=== PATIENT | female | born 1980 ===

== ENCOUNTER 2023-10-19 08:00 | Outpatient (RCR) | payer OTHER, SELFPAY ==
[2023-10-05 11:40] VITALS: BMI 50.8
--- NOTE | 2023-10-05 14:24 | PC.ADMIT ---
Patient is a 43 year old female who was referred to [facility] by [facility] where she was admitted from 09/17/23-09/26/23 d/t increased depression and anxiety. Reportedly patient was having passive SI having thoughts of going to sleep and not waking up, no plan or intent to kill herself. Patient has a history of stopping medications when she is feeling better. Patient is taking a leave of absence from work. 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 Patient reports having some work stresses. 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 Patient currently is alert and oriented x4. Calm and cooperative. Presented with anxious mood and affect. She was tapping her feet during the assessment, stating she is very anxious. Reports poor sleep d/t anxiety. She denied SI, no HI. I gave her a copy of her safety plan if needed. Stated she is doing this program as she wants to feel better and also her family is encouraging her to do this program. Reports her is getting frustrated with her. Medications reconciled with patient, paperwork from [facility], and patient's pharmacy. She reports medication changes stating she is taking Wellbutrin 300 mg daily and not 450 mg daily, She is taking Fluoxetine 40 mg daily and not 60 mg daily, She takes Klonopin daily as needed, Takes Cyclobenzaprine prn, does not take Lisinopril or Chlorthalidone. Will review with Dr Olson.
--- NOTE | 2023-10-08 15:57 | HO.PHP ---
Client's case was opened and reviewed in team.
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
--- NOTE | 2023-10-09 13:25 | HO.PHP ---
[facility] staff member met with Jalyn after community meeting due to her crying and appearing distressed. Jalyn reported that she is feeling overwhelmed with the amount of people in the program and is feeling as though she cannot do this. Jalyn expressed that everyone is telling her to do the program because she is receiving structure and it is getting her out of the house. Jalyn continued to voice the individuals who want her attending, which are her daughter, spouse, doctor, and therapist. PHP staff member reassured Jalyn that sometimes group settings may be too challenging for certain people and we understand that if this is not a good fit. PHP staff member disclosed that if this is not a good fit and she would like to continue with her OP providers in a one on one setting where it doesn't create her anxiety to increase she would need to let us know. Jalyn voiced that she recently took her medication and is going to attempt to attend groups. Jalyn was able to participate and return to group one.
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
--- NOTE | 2023-10-13 14:46 | HO.PHP ---
[facility] staff member followed up with Jalyn due to the comment she made in the third group about wanting to harm someone. Jalyn expressed that she is not going to harm anyone, she has no plan or intent. Jalyn disclosed that she is having a challenging time with one of the group members because it is a trigger for her due to this individual reminding her of her mother. [facility] staff member suggested that she further explore this with her OP therapist to receive additional insight around why she is responding in the manner she is. Jalyn disclosed she does not need to further explore. [facility] staff member explored if she feels she needs anger management since this is bringing up negative emotions for her. Jalyn disclosed that she does not need anger managment because she doesn't feel this is making her angry, just triggered. [facility] staff member was receptive. [facility] staff member encouraged Jalyn to take breaks if she is struggling and if she needs further support to ask a staff member. Jalyn was receptive and clarified she is not going to harm anyone.
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
--- NOTE | 2023-10-20 09:57 | HO.PHP ---
PHP admin, Gabby, received a phone call from Jalyn stating she won't be in attendance to program today due to her daughter not being able to bring her to program for another three hours. Gabby assessed for any safety concerns. Jalyn reported no concerns around SI, plan or intent and noted she will be in the program tomorrow.
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
== END 2023-10-19 23:59 | disposition home or self-care (01) ==
LOC: HO.PHPA 08:00
PROVIDERS: Visit Provider Psychiatry & Neurology Psychiatry
DX: F40.01 Agoraphobia with panic disorder (principal); F43.10 Post-traumatic stress disorder, unspecified; F39 Unspecified mood [affective] disorder; F41.8 Other specified anxiety disorders; R48.0 Dyslexia and alexia; Z79.899 Other long term (current) drug therapy
CPT/HCPCS: 90791; 90853

== ENCOUNTER → 2024-01-26 11:00 | Outpatient (BNV) | payer OTHER, SELFPAY | PROVIDERS: Visit Provider Psychiatry & Neurology Psychiatry | DX: F40.01 Agoraphobia with panic disorder (principal); F39 Unspecified mood [affective] disorder; F43.10 Post-traumatic stress disorder, unspecified; F41.8 Other specified anxiety disorders; R48.0 Dyslexia and alexia | CPT/HCPCS: 99213; 99214; 99233 ==

== ENCOUNTER → 2024-02-03 14:08 | Outpatient (REF) | payer OTHER, SELFPAY ==
--- NOTE | 2024-02-03 14:14 | ECG_ITS ---
Test Reason : qtc check Blood Pressure : / mmHG Vent. Rate : 095 BPM Atrial Rate : 095 BPM P-R Int : 130 ms QRS Dur : 090 ms QT Int : 366 ms P-R-T Axes : 063 037 049 degrees QTc Int : 459 ms Normal sinus rhythm Normal ECG No previous ECGs available Referred By: Dominga Olson Electronically Signed By:CASPER CASANOVA MD
== END ==
LOC: HO.CARD 14:08
PROVIDERS: PCP Nurse Practitioner Family; Visit Provider Psychiatry & Neurology Psychiatry
DX: F33.2 Major depressive disorder, recurrent severe without psychotic features (principal); F43.10 Post-traumatic stress disorder, unspecified
CPT/HCPCS: 93005

== ENCOUNTER → 2024-02-03 14:14 | Outpatient (BNV) | payer OTHER, SELFPAY | PROVIDERS: PCP Nurse Practitioner Family; Visit Provider Internal Medicine Cardiovascular Disease | DX: I45.81 Long QT syndrome (principal) | CPT/HCPCS: 93010 ==

== ENCOUNTER 2024-02-09 10:45 | Outpatient (RCR) | payer OTHER, SELFPAY ==
[2024-01-26 11:51] VITALS: BP 111/90; PULSE 85; TEMP 36.4; BMI 48.5
--- NOTE | 2024-01-26 12:52 | PC.ADMIT ---
Patient is a 43 year old female who was referred to [facility] by [facility] where patient was admitted from 12/30-01/07/24 d/t increased depression and anxiety. She has been on a medical leave from work since 09/17/23 d/t symptoms. Patient reports symptoms of anxiety include restlessness, tremulousness, chest tightness, blurred vision. Patient denied any substance use including alcohol or marijuana. Feels better since respite however still struggling with anxiety, OCD sxs and depression. She reports her is supportive. Patient stated, sometimes I think he gets tired of it regarding her mental health issues. Reports financial issues stating, Bills are piling up and money is getting short. Patient is alert and oriented x4. Calm and cooperative. Presented with depressed mood and anxious affect. Patient reports she is too anxious to go anywhere including the grocery store and on her deck at home. Stated struggles with OCD sxs checking the stove and doors to her house several times which interferes with sleep. Reports passive SI stating, Thoughts to go to bed and not wake up . Denied any plan or intent to kill herself. She was given a copy of her safety plan if needed. Medications reconciled with patient and patient's pharmacy. She reports some changes made at [facility] including decreased dose of Prozac from 60 mg to 40 mg daily, d/c Ziprasidone and is on Vraylar 3 mg, patient reports she stopped Topiramate, and Wellburtrin was decreased to 150 mg daily from 450 mg daily. I spoke to Eduard from [facility] and requested d/c summary including discharge medication list.
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
--- NOTE | 2024-01-28 08:28 | PC.NURSE ---
Addendum entered by Courtney Perez RN 01/28/24 15:12: Dr Olson is aware. Original Note: Patient stated she is not going to be coming to the program today as she started new medication last night taking Gabapentin and Clonazepam and woke up feeling too tired to drive. She stated she went to bed at 11pm and woke up at 6am to get ready for the program. She denied any other symptoms, no dizziness, no lightheadedness. Will review with Dr Olson.
--- NOTE | 2024-01-28 16:37 | HO.PHP ---
Client's case has been opened and reviewed in team.
--- NOTE | 2024-02-01 14:10 | HO.PHP ---
Staff spoke with Jalyn after concerning comments made throughout the day that she enjoys hurting herself. This physician underwriter asked her how she was hurting herself, and she stated with hot coffee she would burn her tongue with it even knowing that its hot. She stated that she is having a lot of conflict at home with her significant other and daughter because she enacts this behavior, but she get pleasure from the pain. She said otherwise she is safe.
--- NOTE | 2024-02-02 09:25 | HO.PHP ---
[facility] staff member contacted Jalyn due to her not showing up for community meeting. Jalyn informed the [facility] staff member that she woke up late and then her daughter got home late. Jalyn stated she was going to try to leave soon but unfortunately was unable to make it for the cut off time. [facility] staff member assessed for any safety concerns, in which she reported no concerns around SI, plan or intent and stated she will be in attendance to program tomorrow. [facility] staff member was receptive.
--- NOTE | 2024-02-05 10:10 | P.PNPSP_ITS ---
Subjective Subjective Date of Service: 02/05/24 Reason For Visit: MISAEL,PTSD,depression Interim History: Patient reports not doing well. Reports struggling with mood swings, which is causing problems at home with family. They think I'm crazy . She says she is screaming at people one moment and then suddenly being nice and agreeable, swings generally between neutral mood and angry, but also says she is quick to cry when getting emotional regardless or whether she is happy, sad or angry. Says her sisiter in law complains she starts talking fast and gets to yelling to quickly. I get frustrated with everybody She is easily triggered by particular individuals, but to some degree everyone gets on her last nerve. She says she still would like to go back on the ziprasidone and in fact went and impulsively stopped the Vraylar that was doing nothing for me. I don't want it . She says she does not know why the respite provider changed it. She says her psych provider Sarah thought she looked better on the ziprasidone, but also just went along with the change and tried bumping the dose of Vraylar up from 1.5 mg to 3 mg. She says she has been off the Vraylar for some amount of days, is not sure how many exactly, but says she is doing okay, no change overall... Says maybe even better off it . But still presents as anxious and labile by all accounts. Transient passive SI, but says she does not have any serious thoughts. She reports that sleep has been good with the gabapentin and plans to keep taking that. She has a lot of cognitive and somatic energy during the day especially out in public. Brittaney swings are at an 8 or 9 out of 10 in severity. Anger is at a 5 or 6 out of 10 in severity. Anxiety persists at a 7 out of 10 in severity. Medication Compliance: Yes Side effects from medications: No Attending Groups: Yes Review of Systems Acute medical concerns: No Mental Status Exam Mental Status Exam Narrative: Alert, oriented, in no acute distress. Tense, tremulous without tremor, tics or abnormal movements. Eye contact intermittent. Mood scared, anxious, affect uptight, panicky highly anxious, teary eyes without notable lability. Speech soft, mild paucity/delayed response due to baseline language processing (bilingual) otherwise normal. Thought process linear, coherent. Thought content related to stressors, +helplessness, transient hopelessness without SI, intention, urge or plan. Denies aggressive ideation or HI. No paranoia or delusional content elicited. No evidence of psychosis. Insight and judgment - fair but adequate Diagnostics Vital Signs (24Hr): BMI result Body Mass Index 48.5 Assessment & Plan Assessment & Plan (1) Panic disorder with agoraphobia, moderate agoraphobic avoidance and moderate panic attacks: Status: Acute Code(s): F40.01 - Agoraphobia with panic disorder (2) Mood disorder: Status: Acute Code(s): F39 - Unspecified mood [affective] disorder (3) PTSD (post-traumatic stress disorder): Status: Acute Code(s): F43.10 - Post-traumatic stress disorder, unspecified (4) Other specified anxiety disorders: Status: Acute Code(s): F41.8 - Other specified anxiety disorders (5) Dyslexia: Status: Acute Code(s): R48.0 - Dyslexia and alexia Plan cont fluoxetine 40 mg qam (interactions with WB, may decrease) cont Wellbutrin XL 150 mg qAM (helps shorten qtc) patient stopped Vraylar start oxcarbazapine 300 mg qhs (will increase to 450 mg at night Thursday - and may consider BID dosing if not too tiring) only take gabapentin PRN sleep (may discont if sleeping well on oxc) restart ziprasidone at 20 mg BID prn agitation (AM and afternoon) until oxcarb is therapeutic increase guanfacine ER to 2 mg qam (vs switching to propranolol) cont clonazepam 1 mg BID cont hydroxyzine pamoate 50 mg TID prn continue other regular medications: HCTZ 25 mg qd, lisinopril 10 mg, cyclobenzaprine 10 mg, celecoxib 200 mg BID, montelukast 10 mg, loratadine 10 mg, Advair inhaler BID, albuterol inhaler q hr PRN? Routine lab work ordered EKG results reviewed - HR 95, normal EKG, with QTc 459 ms (on vraylar) UDS as indicated Continue to monitor as per protocol Certification I certify that partial hospital treatment is medically necessary due to the symptoms and problems resulting from the patient's mental illness and the fa ilure to treat the patient at the partial hospital level of care would likely result in the patient requiring inpatient psychiatric care which could not be prevented at a less intensive level of care. Total time managing care of this patient today ____ minutes. Discharge Plan Discharge Attending provider: Dominga Olson Additional Instructions: Jalyn has an OP therapist Rajwinder Sewell through [facility], in which her next scheduled appointment will be on February 12, 2024 at 9:15 AM in person. Jalyn has a med provider, Sarah Osei, in which her next scheduled appointment is on February 08, 2024 at 5 PM. Medications: New guanfacine 1 mg tablet extended release 24 hr 1 - 2 mg PO DAILY Qty: 20 0RF gabapentin 300 mg capsule 300 mg PO BEDTIME Qty: 20 0RF ziprasidone HCl 20 mg capsule 20 mg PO BID PRN (Reason: agitation) Qty: 30 0RF Rx Instructions: give with food (meal/snack) oxcarbazepine 300 mg tablet 300 mg PO BID Qty: 30 0RF Continued fluoxetine 40 mg capsule 40 mg PO QAM hydroxyzine pamoate 50 mg capsule 50 mg PO TID bupropion HCl 150 mg tablet extended release 24 hr 150 mg PO QAM Qty: 20 0RF Discontinued ziprasidone HCl 40 mg capsule 40 mg PO BID Qty: 30 0RF Rx Instructions: give with food (meal/snack) Vraylar 3 mg Capsule 3 mg PO DAILY No Action celecoxib 200 mg capsule 200 mg PO BID cyclobenzaprine 10 mg tablet 10 mg PO TID PRN (Reason: muscle spasms) Rx Instructions: Patient takes PRN fluticasone propion-salmeterol [Advair Diskus] 250-50 mcg/dose blister with device 1 ea INHALATION BID montelukast 10 mg tablet 10 mg PO QPM albuterol sulfate [Ventolin HFA] 90 mcg/actuation Hfa Aerosol Inhaler 2 puff INHALATION Q4H PRN (Reason: sob) ferrous sulfate [FeroSul] 325 mg (65 mg iron) tablet See Rx Instructions .ROUTE .COMPLEX Rx Instructions: Take on Mondays, Thursday's, and Thursday's. loratadine 10 mg tablet 10 mg PO DAILY Rx Instructions: Last filled 10/20/22 for 90 day supply. clonazepam 1 mg tablet 1 mg PO DAILY PRN (Reason: Anxiety) 14 Days Qty: 14 0RF Patient Comments: New Script from Dr. Olson. metformin 500 mg Tablet 500 mg PO BID Rx Instructions: Patient reports she is supposed to be on this however does not take. valacyclovir 1 gram tablet 1,000 mg PO DAILY PRN (Reason: outbreaks) chlorthalidone 25 mg Tablet 25 mg PO DAILY pantoprazole 40 mg Tablet,Delayed Release (Dr/Ec) 40 mg PO DAILY lisinopril 10 mg Tablet 10 mg PO DAILY fluticasone propionate 50 mcg/actuation spray,suspension 1 spray intranasal BID clonazepam 0.5 mg Tablet 1 mg PO BID PRN (Reason: Anxiety) Rx Instructions: Take 2 tabs twice a day as needed for anxiety. Stand Alone Forms: Patient Portal Discharge page Print Language: Arabic
--- NOTE | 2024-02-08 10:06 | HO.PHP ---
PHP admin, Gabby, informed the PHP team that Jalyn will not be in attendance to program today due to being sick. There were no safety concerns that were reported.
--- NOTE | 2024-02-09 12:08 | P.PNPSP_ITS ---
Subjective Subjective Date of Service: 02/09/24 Reason For Visit: MISAEL,PTSD,depression Interim History: Patient seen for follow-up, anticipating discharge at the end of program today.? I'm so happy. My daughter gave me more responsibilities with the baby (her granddaughter) . SHe reports that her daughter has seen improvement in her in the past week. I am feeling good, I am have been taking 1 1/2 tablets of the Trileptal (twice a day)..it must be good . SHe denies any adverse effects. She notices feeling less irritable and family says she has been less erretic and adds that she has not been engaging in argulents with her son in law. Sleep is pretty good . She contineus to utilize ziprasidone 20 mg every morning because she feels it helps. SHe agrees to just take it if needed. The Trileptal should be stabilizing her mood and she may not necessarily need to ziprasidone every d ay. Reports no acute issues or concerns. Medication compliant, medications well-tolerated. Denies any adverse effects.? Mood is stable.? Denies any hopelessness or SI. Denies thoughts of harming self or others at this time. Denies any aggressive ideation or HI. Denies any paranoia or AH or VH. Sleep, appetite, energy stable. Mental Status Exam Mental Status Exam Narrative: Alert, oriented, in no acute distress. Cooperative, appears anxious tremulous but calmer. Mood stable, affect appropriate, bright, no tearfulness or lability. Speech normal. Thought process linear, coherent, more goal-directed. Thought content related to stressors, future-oriented, denies any helplessness, hopelessness or SI.? No aggressive ideation or HI. No paranoia or delusional content elicited. No evidence of psychosis. Insight and judgment fair-good. Diagnostics Vital Signs (24Hr): BMI result Body Mass Index 48.5 Assessment & Plan Assessment & Plan (1) Panic disorder with agoraphobia, moderate agoraphobic avoidance and moderate panic attacks: Status: Acute Code(s): F40.01 - Agoraphobia with panic disorder (2) Mood disorder: Status: Acute Code(s): F39 - Unspecified mood [affective] disorder (3) PTSD (post-traumatic stress disorder): Status: Acute Code(s): F43.10 - Post-traumatic stress disorder, unspecified (4) Other specified anxiety disorders: Status: Acute Code(s): F41.8 - Other specified anxiety disorders (5) Dyslexia: Status: Acute Code(s): R48.0 - Dyslexia and alexia Plan Discharge from [facility] cont fluoxetine 40 mg qam (interactions with WB, may decrease) cont Wellbutrin XL 150 mg qAM (helps shorten qtc) continue oxcarbazapine 450 mg BID cotninue gabapentin 300 mg qhs PRN sleep continue ziprasidone 20 mg daily in AM prn agitation continue guanfacine ER 1-2 mg BID cont clonazepam 1 mg BID cont hydroxyzine pamoate 50 mg TID prn continue other regular medications: HCTZ 25 mg qd, lisinopril 10 mg, cyclobenzaprine 10 mg, celecoxib 200 mg BID, montelukast 10 mg, loratadine 10 mg, Advair inhaler BID, albuterol inhaler q hr PRN? Lab work reviewed Refills sent to pharmacy Will defer further medication management to outpatient provider *Safety plan reviewed *Discharge diagnoses, treatment course, discharge plan have been reviewed with patient (including medication regime, medication management, potential side effects) as well as treatment rationale were also revisited *Discharge paperwork signed and given to patient, copy sent for scanning to chart Certification I certify that partial hospital treatment is medically necessary due to the symptoms and problems resulting from the patient's mental illness and the failure to treat the patient at the partial hospital level of care would likely result in the patient requiring inpatient psychiatric care which could not be prevented at a less intensive level of care. Total time managing care of this patient today ____ minutes. Discharge Plan Discharge Attending provider: Dominga Olson Additional Instructions: Jalyn has an OP therapist Rajwinder Sewell through [facility], in which her next scheduled appointment will be on February 12, 2024 at 9:15 AM in person. Jayln has a med provider, Sarah Osei, in which her next scheduled appointment is on February 08, 2024 at 5 PM. Medications: Continued celecoxib 200 mg capsule 200 mg PO BID cyclobenzaprine 10 mg tablet 10 mg PO TID PRN (Reason: muscle spasms) Rx Instructions: Patient takes PRN fluticasone propion-salmeterol [Advair Diskus] 250-50 mcg/dose blister with device 1 ea INHALATION BID montelukast 10 mg tablet 10 mg PO QPM albuterol sulfate [Ventolin HFA] 90 mcg/actuation Hfa Aerosol Inhaler 2 puff INHALATION Q4H PRN (Reason: sob) ferrous sulfate [FeroSul] 325 mg (65 mg iron) tablet See Rx Instructions .ROUTE .COMPLEX Rx Instructions: Take on Mondays, Thursday's, and Thursday's. loratadine 10 mg tablet 10 mg PO DAILY Rx Instructions: Last filled 10/20/22 for 90 day supply. metformin 500 mg Tablet 500 mg PO BID Rx Instructions: Patient reports she is supposed to be on this however does not take. valacyclovir 1 gram tablet 1,000 mg PO DAILY PRN (Reason: outbreaks) chlorthalidone 25 mg Tablet 25 mg PO DAILY pantoprazole 40 mg Tablet,Delayed Release (Dr/Ec) 40 mg PO DAILY lisinopril 10 mg Tablet 10 mg PO DAILY fluticasone propionate 50 mcg/actuation spray,suspension 1 spray intranasal BID fluoxetine 40 mg capsule 40 mg PO QAM Qty: 30 0RF clonazepam 1 mg tablet 1 mg PO DAILY PRN (Reason: Anxiety) Qty: 14 0RF Patient Comments: New Script from Dr. Olson. bupropion HCl 150 mg tablet extended release 24 hr 150 mg PO QAM Qty: 30 0RF Changed oxcarbazepine 300 mg tablet 450 mg PO BID Qty: 90 0RF ziprasidone HCl 20 mg capsule 20 mg PO QAM PRN (Reason: agitation) Qty: 30 0RF Rx Instructions: give with food (meal/snack) gabapentin 300 mg capsule 300 mg PO BEDTIME PRN (Reason: as directed) Qty: 20 0RF guanfacine 1 mg tablet extended release 24 hr 1 - 2 mg PO BID 30 Days Qty: 60 0RF hydroxyzine pamoate 50 mg capsule 50 mg PO TID PRN (Reason: Anxiety) Qty: 30 0RF Discontinued ziprasidone HCl 40 mg capsule 40 mg PO BID Qty: 30 0RF Rx Instructions: give with food (meal/snack) Vraylar 3 mg Capsule 3 mg PO DAILY clonazepam 0.5 mg Tablet 1 mg PO BID PRN (Reason: Anxiety) Rx Instructions: Take 2 tabs twice a day as needed for anxiety. Stand Alone Forms: Patient Portal Discharge page Patient Education: Panic Disorder (DC) Print Language: Mongolian
== END 2024-02-09 23:59 | disposition home or self-care (01) ==
LOC: HO.PHPA 10:45
PROVIDERS: Visit Provider Psychiatry & Neurology Psychiatry
DX: F40.01 Agoraphobia with panic disorder (principal); F39 Unspecified mood [affective] disorder; F43.10 Post-traumatic stress disorder, unspecified; F41.8 Other specified anxiety disorders; R48.0 Dyslexia and alexia; Z79.899 Other long term (current) drug therapy
CPT/HCPCS: 90791; 90853